=== PATIENT | male | born 1965 | race Two or more races ===

== ENCOUNTER 2022-02-01 15:25 | Emergency (ER) | payer MEDICAID, OTHER ==
[~2022-02-01] VITALS: Ht 167.6 cm; Wt 73.0 kg
[~2022-02-01 15:25] MED LIST: AMLO5TAB88 PO; ASPI-1406 PO; ASPI-1497 PO; ATOR40TA70 PO; CLOP-31 PO; INSU3INS6 SUBCUT; LIP40 PO; METF-414 PO; METO-539 PO; NITR0.4T49 SL
[2022-02-01] MEDS ORDERED: LIDOCAINE HCL/EPINEPHRINE 1%-EPI 1:100,000 20 ML VIAL INFIL ONE (17:30)
[2022-02-01] MEDS ORDERED: BACITRACIN ZINC OINT UDPKT TOP ONE (17:30)
[2022-02-01] MEDS ORDERED: SULF1TAB48 MT ×3 (19:09→19:51)
[2022-02-01 21:25] VITALS: BP 132/83
== END 2022-02-01 21:28 | disposition home or self-care (01) ==
LOC: ER 15:25
DX: L03.311 Cellulitis of abdominal wall (principal); I25.10 Atherosclerotic heart disease of native coronary artery without angina pectoris; E11.9 Type 2 diabetes mellitus without complications; I10 Essential (primary) hypertension; I25.2 Old myocardial infarction; Z79.899 Other long term (current) drug therapy
CPT/HCPCS: 10060; 82962; 99283; J3490; 99282

== ENCOUNTER 2025-07-06 16:44 | Emergency (ER) | payer OTHER ==
[~2025-07-06] VITALS: Ht 170.2 cm; Wt 79.0 kg
[~2025-07-06 16:44] MED LIST changes: +SULF1TAB48 MT
[2025-07-06 17:09] VITALS: O2SAT 96
[2025-07-06 18:23] LABS: BASOPHILS % 0.5 % (0.0-2.0); EOSINOPHILS % 0.0 % (0.0-5.0); HEMATOCRIT. 37.6 % (42.0-52.0); HEMOGLOBIN. 12.8 g/dL (14.0-18.0); LYMPHOCYTES % 7.8 % (20.0-50.0); MEAN PLATELET VOLUME 7.9 fl (7.4-10.4); MONOCYTES % 9.0 % (2.0-8.0); NEUTROPHILS % 82.7 % (40.0-76.0); PLATELET 141 x1000/uL (130-400); RED BLOOD CELL COUNT 4.62 mill/uL (4.7-6.1); RED CELL DISTRIBUTION WIDTH 14.9 % (11.6-14.6)
[2025-07-06 18:37] LABS: CREATININE 1.2 mg/dL (0.6-1.3); INR 1.2
[2025-07-06 18:38] LABS: UREA NITROGEN BLOOD 20 mg/dL (9-23)
[2025-07-06 18:39] LABS: ASPARTATE AMINOTRANSFERASE 14 IU/L (<34)
[2025-07-06 18:40] LABS: BILIRUBIN DIRECT 0.3 mg/dL (<=3.0); BILIRUBIN TOTAL 1.0 mg/dL (0.1-1.0); PROTEIN TOTAL 6.9 g/dL (6.0-8.3)
[2025-07-06] MEDS: PIPERACILLIN/TAZO 3.375G/50ML 50 ML IV ONE (18:51)
[2025-07-06] MEDS: SODIUM CHLORIDE 0.9% (SEPSIS BOLUS) IV ONE ×2 (18:52→19:33)
[2025-07-06] MEDS: ACETAMINOPHEN 325MG TABLET PO ONE (18:53)
[2025-07-06] MEDS: VANCOMYCIN 1G PREMIX 200 ML IV ONE (19:36)
[2025-07-06 22:47] VITALS: BP 108/70; PULSE 100; RESP 28; TEMP 37.1; O2SAT 97
[2025-07-06 23:26] LABS: CLARITY URINE CLEAR (CLEAR); COLOR URINE YELLOW (YELLOW); GLUCOSE URINE 3+ (NEGATIVE); KETONES URINE NEGATIVE (NEGATIVE); LEUKOCYTE ESTERASE URINE NEGATIVE (NEGATIVE); NITRITE URINE NEGATIVE (NEGATIVE); OCCULT BLOOD URINE 2+ (NEGATIVE); PH URINE 5.0 (4.5-8.0); PROTEIN URINE 2+ (NEGATIVE); SPECIFIC GRAVITY URINE 1.024 (1.005-1.030); UROBILINOGEN URINE 0.2 E.U./dL (0.2-1.0)
[2025-07-07 00:29] LABS: BACTERIA URINE NONE SEEN; RBC URINE 0-2 /hpf (0-2); SQUAMOUS EPITHELIAL CELL URINE NONE SEEN /lpf (RARE/1+); WBC URINE 0-2 /hpf (0-2)
== END 2025-07-06 23:16 | disposition short-term general hospital (02) ==
LOC: ER 16:44 → CMPBEDREQ 07-07 07:21
DX: J11.00 Influenza due to unidentified influenza virus with unspecified type of pneumonia (principal); R65.10 Systemic inflammatory response syndrome (SIRS) of non-infectious origin without acute organ dysfunction; E11.9 Type 2 diabetes mellitus without complications; I11.9 Hypertensive heart disease without heart failure; I25.10 Atherosclerotic heart disease of native coronary artery without angina pectoris; Z79.02 Long term (current) use of antithrombotics/antiplatelets; Z79.82 Long term (current) use of aspirin; Z79.84 Long term (current) use of oral hypoglycemic drugs; Z79.899 Other long term (current) drug therapy; Z20.822 Contact with and (suspected) exposure to COVID-19
CPT/HCPCS: 99285; 96365; 71045; 96367; 87426; 80076; 80048; 81003; 82550; 82962; 83605; 85025; 85610; 87040; 87086; 36415; 84145; 93005; J2543; J3373; J7030; A4606